=== PATIENT | female | born 1960 | race Caucasian/White ===

== ENCOUNTER → 2016-10-23 | Outpatient (CLI) | payer BC ==
--- NOTE | 2016-10-24 08:36 | MM ---
Reason for exam: screening (asymptomatic). Last mammogram was performed 13 years and 1 month ago. History: Patient has history of other cancer at age 39. Family history of breast cancer in paternal grandmother. Physical Findings: A clinical breast exam by your physician is recommended on an annual basis and results should be correlated with mammographic findings. MG Screening Mammo w CAD Bilateral CC and MLO view(s) were taken. Prior study comparison: September 09, 2003, bilateral screening mammogram. August 12, 2002, bilateral screening mammogram. There are scattered fibroglandular densities. Finding: There are typically benign round, regional, grouped calcifications in both breasts. Asymmetry in the right CC view. Focal asymmetry in the left breast middle depth upper aspect. ASSESSMENT: Incomplete: need additional imaging evaluation, BI-RAD 0 RECOMMENDATION: Special view mammogram of both breasts. [facility] will attempt to contact patient to return for supplemental views.
== END | disposition home or self-care (01) ==
LOC: RADMAMWWP 09:01
PROVIDERS: ATTEND Family Medicine
DX: Z12.31 Encounter for screening mammogram for malignant neoplasm of breast (principal)

== ENCOUNTER → 2016-10-26 | Outpatient (CLI) | payer BC ==
--- NOTE | 2016-10-27 07:15 | MM ---
Reason for exam: additional evaluation requested from abnormal screening. Last mammogram was performed less than 1 month ago. History: Patient has history of other cancer at age 39. Family history of breast cancer in paternal grandmother. Physical Findings: Nurse did not find any significant physical abnormalities on exam. MG Work Up Mamm w CAD BILAT Bilateral ML and CC view(s) were taken. MLO view(s) were taken of the left breast. Prior study comparison: October 23, 2016, bilateral MG screening mammo w CAD. September 09, 2003, bilateral screening mammogram. No definate lesions persist on additional views. These results were verbally communicated with the patient and result sheet given to the patient on 10/26/16. ASSESSMENT: Probably benign, BI-RAD 3 RECOMMENDATION: Follow-up diagnostic mammogram of both breasts in 6 months.
== END | disposition home or self-care (01) ==
LOC: RADMAMWWP 14:57
PROVIDERS: ATTEND Family Medicine
DX: R92.8 Other abnormal and inconclusive findings on diagnostic imaging of breast (principal)